=== PATIENT | male | born 1955 | race Caucasian/White ===

== ENCOUNTER 2021-02-01 12:34 | Emergency (ER) | payer MEDICARE, OTHER ==
[~2021-02-01] VITALS: Ht 175.3 cm; Wt 100.0 kg
[2021-02-01 13:12] VITALS: BP 145/91
[2021-02-01] MEDS: IBUPROFEN 600 MG TABLET PO ONE (13:39)
== END 2021-02-01 15:30 | disposition home or self-care (01) ==
LOC: EMS 12:40
DX: S83.91XA Sprain of unspecified site of right knee, initial encounter (principal); S40.012A Contusion of left shoulder, initial encounter; Q78.0 Osteogenesis imperfecta; E11.9 Type 2 diabetes mellitus without complications; E78.00 Pure hypercholesterolemia, unspecified; I10 Essential (primary) hypertension; W19.XXXA Unspecified fall, initial encounter; Y93.89 Activity, other specified; Y92.89 Other specified places as the place of occurrence of the external cause; Y99.8 Other external cause status
CPT/HCPCS: 29505; 99284; 73030-TC; 73562-TC; Z7502; Z7610

== ENCOUNTER 2021-04-09 20:05 | Emergency (ER) | payer MEDICARE, OTHER ==
[~2021-04-09] VITALS: Ht 137.2 cm; Wt 90.0 kg
[2021-04-10] MEDS ORDERED: HYDROCODONE/ACETAMINOPHEN 5-325 MG TABLET PO ONE ×2 (00:15→05:30)
[2021-04-10 02:04] LABS: BASOPHILS % (AUTO) 0.9 % (0.0-2.0); EOSINOPHILS % (AUTO) 1.8 % (1.0-6.0); HEMATOCRIT 38.2 % (41-53); HEMOGLOBIN 13.2 g/dL (13.5-17.5); LYMPHOCYTES # (AUTO) 2.2 K/uL (1.0-4.8); LYMPHOCYTES % (AUTO) 15.9 % (22.0-44.0); MEAN CORPUSCULAR HEMOGLOBIN 29.4 pg (26.0-34.0); MEAN CORPUSCULAR HGB CONC 34.6 G/dL (31.0-37.0); MEAN CORPUSCULAR VOLUME 85 fL (80-100); MONOCYTES # (AUTO) 1.6 K/uL (0.1-1.0); MONOCYTES % (AUTO) 11.5 % (2.0-9.0); NEUTROPHILS # (AUTO) 9.6 K/uL (1.8-7.7); NEUTROPHILS % (AUTO) 69.9 % (40.0-70.0); PLATELET COUNT (AUTO) 343 K/uL (150-450); RED CELL DISTRIBUTION WIDTH 13.2 % (11.5-14.5)
[2021-04-10 02:12] LABS: PROTHROMBIN TIME 10.6 SEC (9.4-11.6)
[2021-04-10 02:16] LABS: CALCIUM, TOTAL 8.6 mg/dL (8.8-10.5); CREATININE 3.25 mg/dL (0.60-1.30); POTASSIUM 4.6 mmol/L (3.5-5.1)
[2021-04-10 02:21] LABS: ALBUMIN 2.9 g/dL (3.4-5.0); BILIRUBIN,TOTAL 0.5 mg/dL (0.1-1.0); TOTAL PROTEIN, SERUM 6.8 g/dL (6.4-8.2)
[2021-04-10 02:24] LABS: LACTIC ACID 0.6 mmol/L (0.4-2.0)
[2021-04-10 05:17] VITALS: BP 98/63
== END 2021-04-10 05:16 | disposition home or self-care (01) ==
LOC: EMS 20:06
DX: S22.42XA Multiple fractures of ribs, left side, initial encounter for closed fracture (principal); S52.602A Unspecified fracture of lower end of left ulna, initial encounter for closed fracture; I10 Essential (primary) hypertension; E11.9 Type 2 diabetes mellitus without complications; E78.00 Pure hypercholesterolemia, unspecified; W18.39XA Other fall on same level, initial encounter; Y93.89 Activity, other specified; Y92.89 Other specified places as the place of occurrence of the external cause; Y99.8 Other external cause status
CPT/HCPCS: 29125; 36415; 71101; 71250; 72192; 73110; 74150; 74176; 80053; 83605; 83690; 85025; 85610; 99285; G0238

== ENCOUNTER 2023-04-27 11:09 | Emergency (ER) | payer MEDICARE, MEDICAID ==
[~2023-04-27] VITALS: Ht 142.2 cm; Wt 81.0 kg
[2023-04-27 11:13] VITALS: TEMP 98.3
[2023-04-27] MEDS ORDERED: IBUP-1492 PO (12:58)
[2023-04-27] MEDS ORDERED: PERCT PO (12:59)
[2023-04-27] MEDS ORDERED: KETOROLAC TROMETHAMINE 60 MG/2 ML VIAL IM ONE (13:00)
[2023-04-27 14:28] VITALS: BP 128/71; PULSE 74; RESP 16
== END 2023-04-27 14:35 | disposition home or self-care (01) ==
LOC: EMS 11:09
DX: S20.20XA Contusion of thorax, unspecified, initial encounter (principal); E78.00 Pure hypercholesterolemia, unspecified; I10 Essential (primary) hypertension; F17.210 Nicotine dependence, cigarettes, uncomplicated; Z98.890 Other specified postprocedural states; W19.XXXA Unspecified fall, initial encounter; Y93.89 Activity, other specified; Y92.89 Other specified places as the place of occurrence of the external cause; Y99.8 Other external cause status
CPT/HCPCS: 99283; 71100; 96372; J1885